=== PATIENT | female | born 1940 | race Caucasian/White ===

== ENCOUNTER 2016-06-12 11:59 | Outpatient (CLI) | payer MEDICARE ==
--- NOTE | 2016-06-12 19:26 | RAD ---
LEFT HIP TWO VIEWS: 06/12/16 No fracture was seen. The hip appears intact. The joint space is normal in width. The adjacent pubic ring appears intact. IMPRESSION: No acute bony findings. POS: HOME
--- NOTE | 2016-06-12 19:30 | RAD ---
LEFT RIBS WITH PA CHEST 06/12/16 No prior films were available for comparison. The heart is upper normal in size. There is no vascular congestion, edema, or pleural effusion. The lungs are fully inflated and clear. No infiltrate was seen. No rib fractures were detected. There is no sign of pneumothorax. IMPRESSION: No acute thoracic finding. POS: HOME
== END 2016-06-12 12:00 | disposition home or self-care (01) ==
LOC: BURRAD 11:59
PROVIDERS: ATTEND Family Medicine
DX: M25.552 Pain in left hip (principal); R07.81 Pleurodynia

== ENCOUNTER 2017-12-23 15:13 | Outpatient (CLI) | payer MEDICARE, OTHER ==
--- NOTE | 2017-12-23 20:10 | RAD ---
RIGHT HAND THREE VIEWS: 12/23/2017 FINDINGS: No acute fracture is seen. The fingers, metacarpals, and carpal bones appear intact. Old ORIF of fr actures of the distal radius and ulna is evident at the margin of the film. IMPRESSION: No acute bony findings. POS: HOME
== END 2017-12-23 15:14 | disposition home or self-care (01) ==
LOC: BURRAD 15:13
PROVIDERS: ATTEND Family Medicine
DX: M79.89 Other specified soft tissue disorders (principal)

== ENCOUNTER 2019-10-07 10:55 | Outpatient (CLI) | payer MEDICARE ==
--- NOTE | 2019-10-07 14:53 | RAD ---
RIGHT FOREARM 2 VIEWS: DATE: 10/07/2019. COMPARISON: Comparison is made with the 07/08/2008 study. FINDINGS: The prior ORIF of fractures of the radius and ulna are again noted. The bones are well healed and th ere is no sign of loosening or infection around the hardware. No new bony injury was seen. IMPRESSION: No significant bony findings. POS: HOME
== END 2019-10-07 10:56 | disposition home or self-care (01) ==
LOC: BURRAD 10:55
PROVIDERS: ATTEND Registered Nurse Community Health
DX: R22.31 Localized swelling, mass and lump, right upper limb (principal)

== ENCOUNTER 2021-06-10 09:31 | Emergency (ER) | payer MEDICARE | END 2021-06-10 10:12 | disposition home or self-care (01) | LOC: BURERS 09:31 | DX: S80.02XA Contusion of left knee, initial encounter (principal); W19.XXXA Unspecified fall, initial encounter; Y93.01 Activity, walking, marching and hiking ==